=== PATIENT | male | born 1960 | race Hispanic/Latino ===

== ENCOUNTER 2017-05-14 11:44 | Inpatient (IN) | payer OTHER ==
--- NOTE | 2017-05-14 12:57 | RAD ---
EXAM DESCRIPTION: Abdomen Series CLINICAL HISTORY: ab pain 3 days COMPARISON: 13 May 2017 TECHNIQUE: PA chest with supine and upright views of the abdomen] FINDINGS: The lungs are clear. The heart is normal size. There is an unremarkable bowel gas pattern. There is no mass or calculus. Degenerative changes are observed in the lumbar spine. IMPRESSION: Unremarkable acute abdominal series. Electronically signed by: Jayjay Caba MD 05/14/2017 12:56 PM CDT
[2017-05-14] MEDS ORDERED: SODIUM CHLORIDE 0.9% 1000ML 1,000 ML IVS ONE ×2 (13:39→17:36)
--- NOTE | 2017-05-14 14:26 | CT ---
EXAM DESCRIPTION: Abdomen/Pelvis w/Contrast CLINICAL HISTORY: 56 years Male, epigatric/ruq pain with leukocytosis COMPARISON: None. TECHNIQUE: Transaxial images were obtained without oral contrast media and during injector demonstrated intravenous contrast media. Sagittal and coronal reconstruction was performed.This exam was performed according to our departmental dose-optimization program, which includes automated exposure control, adjustment of the mA and/or kV according to patient size and/or use of iterative reconstruction technique. FINDINGS: The lung bases are clear. The liver and spleen are unremarkable. Exam reveals a small amount of free fluid along the inferior margin of the liver. No adrenal masses are detected. Mild edema is observed about the gallbladder. No gallstones are seen. The pancreas is normal in appearance. Imaging of the kidneys reveals no evidence of hydronephrosis mass cyst or calcification. A small amount ascites is observed in the pelvis. No inguinal region abnormality is seen. The appendix is identified and is normal in appearance. Degenerative changes are observed in the lumbar spine. IMPRESSION: 1. A small amount of ascites is observed in the upper abdomen and in the pelvis. 2. Inflammatory changes are observed about the gallbladder without evidence of gallstones. Possible this may represent evidence of acalculous cholecystitis. Further evaluation the patient with a hepatobiliary scan should be considered. Sonography could also be entertained. Electronically signed by: Jayjay Caba MD 05/14/2017 2:25 PM CDT
[2017-05-14] MEDS ORDERED: PIPERACILLIN/TAZOBACTAM 3.375 GM in SODIUM CHLORIDE 0.9% 100ML 100 ML IVPB ONE (14:42)
[2017-05-14] MEDS ORDERED: PIPERACILLIN/TAZOBACTAM 3.375 GM VIAL IVPB ONE ×2 (14:48→22:13)
[2017-05-14] MEDS ORDERED: SODIUM CHLORIDE 0.9% 100ML 100 ML IVPB ONE ×2 (14:48→22:13)
--- NOTE | 2017-05-14 15:39 | US ---
EXAM DESCRIPTION: Abdomen,Limited CLINICAL HISTORY: 56 years,Male,eval gb, quest ct, elev wbc, ruq pain COMPARISON: None TECHNIQUE: Multiple real-time sonographic images were obtained of the right upper quadrant. FINDINGS: The liver demonstrates normal echotexture. No masses. No cysts. It measures 13.7 cm in craniocaudal length. Gallbladder demonstrates some possible sludge within the gallbladder. There is no intrahepatic biliary ductal dilatation. The gallbladder wall thickness is unremarkable. No pericholecystic fluid. The common bile duct measures 3 mm in diameter. Right kidney demonstrates normal cortical echotexture and thickness. No stones or hydronephrosis. It measures 9.5 cm in length. The pancreas visualized portions of the head and body appear unremarkable. No free fluid in the right upper quadrant. IMPRESSION: Gallbladder demonstrates a possible sludge within it. But the recent CT scan done today demonstrates evidence of cholecystitis. No shadowing stones seen.. Electronically signed by: Jayjay Arvizu MD 05/14/2017 3:38 PM CDT
--- NOTE | 2017-05-14 15:48 | ED.PDOC ---
History of Present Illness - General Chief Complaint: Abdominal Pain Stated Complaint: R abdominal discomfort Time Seen by Provider: 05/14/17 11:53 Source: patient, family Exam Limitations: language barrier - History of Present Illness Initial Comments: the patient is a 56-year-old male presenting to the emergency room secondary to epigastric and right upper quadrant abdominal pain for the last 3 days. He did have some nausea and vomiting yesterday. He has apparently recently resumed some drinking. He has been told he has gastritis. He has also apparently been told at some point that he has some cirrhosis. No previous abdominal surgeries. No fevers. No syncope or near syncope. The patient is Mauritian and his largely translates. Severity: moderate Improving Factors: nothing Worsening Factors: eating, movement Allergies/Adverse Reactions: Allergies NO KNOWN ALLERGY Allergy (Verified 05/14/17 12:02) Home Medications: Ambulatory Orders Liraglutide [Victoza] 18 mg SC DAILY 05/14/17 Metoprolol Tartrate 50 mg PO DAILY 05/14/17 Pantoprazole Tablet [Protonix] 40 mg PO DAILY 05/14/17 Review of Systems - Review of Systems Constitutional: States: malaise EENTM: States: no symptoms reported Respiratory: States: no symptoms reported Cardiology: States: no symptoms reported Gastrointestinal/Abdominal: States: see HPI, abdominal pain, nausea, vomiting Genitourinary: States: no symptoms reported Musculoskeletal: States: no symptoms reported Skin: States: no symptoms reported Neurological: States: see HPI Endocrine: States: no symptoms reported Hematologic/Lymphatic: States: no symptoms reported All other Systems: No Change from Baseline Past Medical History (General) - Patient Medical History Hx Stroke: No Hx Congestive Heart Failure: No Hx Hypertension: Yes Hx Diabetes: Yes Hx Gastroesophageal Reflux: Yes Surgical History: no surgical history - Vaccination History Hx Influenza Vaccination: Yes - 2016 Hx Pneumococcal Vaccination: No - Social History Hx Tobacco Use: No Hx Alcohol Use: Yes Family Medical History - Family History Father Family History: No Known Living Status: Physical Exam - Physical Exam General Appearance: Alert, No apparent distress Eye Exam: bilateral normal Ears, Nose, Throat: hearing grossly normal, normal ENT inspection, normal pharynx Neck: non-tender, full range of motion Respiratory: chest non-tender, lungs clear, normal breath sounds, no respiratory distress, no accessory muscle use Cardiovascular/Chest: normal peripheral pulses, regular rate, rhythm, no edema Peripheral Pulses: radial,right: 2+, radial,left: 2+, dorsalis pedis,right: 2+, dorsalis pedis,left: 2+ Gastrointestinal/Abdominal: other - there is some voluntary guarding. The patient has discomfort to palpation of his epigastric and right upper quadrant. Difficult to tell if there is rebound. No definite palpable mass. 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 There is some question of acalculous cholecystitis on this patient. He does have leukocytosis. The patient has been given a dose of Zosyn and blood cultures have been performed. The patient will be admitted for further monitoring and IV antibiotics. There is certainly a possibility of some overlying gastritis with this patient. Surgery is following along for now. - Results/Orders Results/Orders: Laboratory Tests 05/14/17 05/14/17 05/14/17 12:00 12:20 12:20 WBC 16.6 H RBC 5.16 Hgb 14.9 Hct 45.9 MCV 89.0 MCH 29.0 MCHC 32.5 L RDW 14.4 Plt Count 176 MPV 9.4 Absolute Neuts (auto) 15.00 H Absolute Lymphs (auto) 0.70 L Absolute Monos (auto) 0.80 Absolute Eos (auto) 0.00 Absolute Basos (auto) 0.10 Neutrophils % 90.4 H Lymphocytes % 4.3 L Monocytes % 4.9 Eosinophils % 0.0 L Basophils % 0.4 PT INR PTT (SP) Sodium 134 L Potassium 4.0 Chloride 95 L Carbon Dioxide 32 H Anion Gap 11.0 L BUN 10 Creatinine 0.79 BUN/Creatinine Ratio 12.7 Random Glucose 155 H Serum Osmolality 270.4 L Calcium 8.8 Magnesium 1.9 Total Bilirubin 1.5 H AST 18 ALT 13 Alkaline Phosphatase 92 Creatine Kinase 32 L CK-MB (CK-2) 0.8 CK-MB (CK-2) % Not Reportable Troponin I < 0.02 Serum Total Protein 7.9 Albumin 3.8 Globulin 4.1 H Albumin/Globulin Ratio 0.9 L Amylase 42 Lipase 29 Urine Color Yellow Urine Appearance Clear Urine pH 7.0 Ur Specific Karn[place] 1.015 Urine Protein Trace Urine Glucose (UA) 250 H Urine Ketones Negative Urine Blood Trace-intact H Urine Nitrite Negative Urine Bilirubin Negative Urine Urobilinogen 0.2 Ur Leukocyte Esterase Negative Urine RBC 0 Urine WBC 1-3 Ur Epithelial Cells 3-5 Urine Bacteria 0 05/14/17 12:20 WBC RBC Hgb Hct MCV MCH MCHC RDW Plt Count MPV Absolute Neuts (auto) Absolute Lymphs (auto) Absolute Monos (auto) Absolute Eos (auto) Absolute Basos (auto) Neutrophils % Lymphocytes % Monocytes % Eosinophils % Basophils % PT 12.3 INR 1.090 PTT (SP) 31.1 Sodium Potassium Chloride Carbon Dioxide Anion Gap BUN Creatinine BUN/Creatinine Ratio Random Glucose Serum Osmolality Calcium Magnesium Total Bilirubin AST ALT Alkaline Phosphatase Creatine Kinase CK-MB (CK-2) CK-MB (CK-2) % Troponin I Serum Total Protein Albumin Globulin Albumin/Globulin Ratio Amylase Lipase Urine Color Urine Appearance Urine pH Ur Specific [place] Urine Protein Urine Glucose (UA) Urine Ketones Urine Blood Urine Nitrite Urine Bilirubin Urine Urobilinogen Ur Leukocyte Esterase Urine RBC Urine WBC Ur Epithelial Cells Urine Bacteria CT scan of the abdomen and pelvis with IV contrast shows some small amount of free fluid as well as possibly some mild changes consistent with acalculous cholecystitis. Right upper quadrant ultrasound shows some mild gallbladder wall thickening and some thickened sludge. Acute abdominal series is nonspecific. Departure - Departure Clinical Impression: Abdominal pain Qualifiers: Abdominal location: right upper quadrant Qualified Code(s): R10.11 - Right upper quadrant pain Disposition: Admit Patient Home Medications: Ambulatory Orders Liraglutide [Victoza] 18 mg SC DAILY 05/14/17 Metoprolol Tartrate 50 mg PO DAILY 05/14/17 Pantoprazole Tablet [Protonix] 40 mg PO DAILY 05/14/17 Decision To Admit - Decistion To Admit Decision to Admit Reason: Medical Nature Decision to Admit Date: 05/14/17 Decision to Admit Time: 15:52
--- NOTE | 2017-05-14 16:49 | HP ---
SUPERVISING PHYSICIAN: Jose Sharp MD CHIEF COMPLAINT: Right upper quadrant abdominal pain. PRIMARY CARE PHYSICIAN: Didi [place], [place] HISTORY OF PRESENT ILLNESS: Mr. Basurto is a 56 year-old male, Kyrgyz-speaking only, who presented to the Emergency Room secondary to epigastric discomfort and some pain in his right upper quadrant that has been present for approximately 3 days. He noted that he has had some nausea and vomiting since yesterday. He does have a significant history of drinking and his says when he does drink, which is normally every day, he drinks about a case of beer a day. He had recently stopped drinking for a short period of time but started back recently. Within the last 3 days he has not drank secondary to his ongoing nausea and vomiting and abdominal pain. He has been told in the past by his family physician that he has had cirrhosis secondary to his drinking. Laboratory studies today showed he had a leukocytosis with a white count of 16.6 and a left shift. Chemistries showed a normal amylase and lipase. Liver functions showed a slightly elevated bilirubin at 1.5 with electrolytes showing a low sodium. Renal function is intact with a creatinine of 0.79. He had an abdominal x-ray as well as an abdominal pelvic CT with contrast and per radiology interpretation there is note of a small amount of ascites observed in the upper abdomen and in the pelvis and with some inflammatory changes about the gallbladder otherwise any evidence of gallstones. He was further examined with an ultrasound of the abdomen and per radiology interpretation noted that the gallbladder had some sludge present but no intrahepatic biliary duct dilation was noted. The common bile duct was measuring 3 mm in diameter. Given his symptomatology and findings on CT, there were concerns for acalculous cholecystitis, Dr. Sargent was consulted for the patient in the Emergency Room. The patient is now to be admitted to the medical/surgical floor for further treatment and evaluation of his right upper quadrant abdominal pain and elevated bilirubin. He was admitted in stable condition. PAST MEDICAL HISTORY: 1. Hypertension. 2. Diabetes mellitus., type 2, currently on Victoza. 3. Past history of gastritis. 4. History of chronic alcohol abuse. PAST SURGICAL HISTORY: None listed. CURRENT MEDICATIONS: 1. Victoza 1.2 mL subcutaneous daily. 2. Metoprolol 50 mg twice a day. 3. Protonix 40 mg daily. ALLERGIES: NO KNOWN DRUG ALLERGIES. FAMILY HISTORY: Noncontributory. 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 He is Kyrgyz-speaking only. His notes that he has never smoked or used illicit drugs but he does have a significant drinking habit for alcohol which normally consists of daily drinking, about a case of beer a day. REVIEW OF SYSTEMS: CONSTITUTIONAL: Positive for general malaise. HEENT: Denies any headaches, nasal congestion. RESPIRATORY: Denies any shortness of breath, coughing. HEART: Denies any chest pain, palpitations or syncopal episodes. GASTROINTESTINAL: As noted in the history of present illness, abdominal pain and nausea and vomiting. GENITOURINARY: Denies any dysuria, hematuria or other urinary symptoms. NEUROLOGICAL: Denies any syncopal episodes, vision changes or any other neurological issues. PHYSICAL EXAMINATION: VITAL SIGNS: On admission to the medical/surgical floor showed he had a temperature of 100.6 with a heart rate of 122, blood pressure 134/79, respirations 26, saturation 96% on room air. Admission weight 78.8 kg. GENERAL: The patient appears to be well-nourished and well-hydrated. On examination on the medical/surgical floor, the patient appears to be without any acute distress but is very stoic. Tympanic membranes are clear. Bilateral oropharynx is pink. Mucous membranes dry, no lesions noted. HEENT: Supple, non-tender, full range of motion. NECK: There is no jugular venous distention noted. CHEST: Lungs are clear to auscultation bilaterally without any rhonchi, wheezing or rales. CARDIOVASCULAR: Regular rate and rhythm without appreciable murmurs, rubs, or gallops. ABDOMEN: Mildly distended with notable tenderness in the right upper quadrant but no guarding. Bowel sounds are present but decreased. EXTREMITIES: No cyanosis, clubbing, or edema. NEUROLOGIC: He was alert and after visitation with his and himself, felt oriented x3. Cranial nerves II through XII were grossly intact. Facial features were symmetrical. Extraocular movements were within normal limits. There was no notable nystagmus. There was no notable neuro or sensory deficits noted. LABORATORY: CBC showed a leukocytosis, 61 segs, hemoglobin 14.9, hematocrit 45.9. Platelet count 176,000, differential did show a left shift with 90% neutrophils. Coagulation studies showed a normal PT/PTT. Chemistries showed a mild hyponatremia at 134 with carbon dioxide of 32, anion gap low at 11, BUN 10 , creatinine 0.79. Glucose 155. Lactic acid 1.8, calcium 8.8, magnesium 1.9, bilirubin elevated at 1.5. Other liver functions showed to be within normal limits. Troponin on admission was less than 0.02. Amylase and lipase were all within normal limits. Urinalysis showed 250 glucose with a trace of minor intact blood, otherwise was within normal limits. MICROBIOLOGY: Two sets of blood cultures are pending. RADIOLOGY: Abdominal x-ray in the Emergency Department prior to admission and per radiology interpretation was unremarkable, acute abdominal series. This was followed up with abdominal pelvic CT with contrast showed some ascites with some edema in the area around the gallbladder with a normal duct. This was followed up by ultrasound that revealed a thickened gallbladder wall with some pericystic fluid, no stones except some sludge was noted and it was negative for Velasquez;s sign. There was also note that he had significant cirrhosis on CT scan. ASSESSMENT: 1. Right upper quadrant abdominal pain with a leukocytosis and elevated bilirubin, suspect acalculous cholecystitis. 2. History of alcohol abuse with cirrhosis as noted on CT. 3. Hypertension. 4. Gastroesophageal reflux disease. 5. Type 2 diabetes mellitus on Victoza. 6. Febrile illness with a leukocytosis felt to be secondary to developing acalculous cholecystitis with the patient being initiated on antibiotic therapy. PLAN: We will admit the patient to the medical/surgical floor and obtain a consultation with Dr. Sargent that was management of the patient's ongoing symptoms. He will be started on IV antibiotics to include Levaquin and Flagyl. He did receive a dose of Zosyn in the Emergency Room. We will start him on IV fluids with a 2-liter bolus. This will be followed up with continuous fluid. He will be on n.p.o. status. We will await Dr. Sargent's recommendations and plan to repeat laboratory studies in the morning. Until discharge, we will continue to monitor the patient closely and treat appropriately #[id number] [facility]
--- NOTE | 2017-05-14 17:16 | CONS ---
DATE OF CONSULTATION: 05/14/17 REFERRING PHYSICIAN: Hospitalist Service HISTORY OF PRESENT ILLNESS: The patient is a 56 year-old male who presented to the Emergency Room. This is the third day of abdominal pain with associated nausea and vomiting yesterday. The patient speaks Armenian poorly and it is hard to distinguish exactly the onset, but apparently he did not feel good when he woke up Wednesday morning as he did not eat. There is no history of hepatitis, but his states that he has been told he has cirrhosis secondary to drinking. PAST MEDICAL HISTORY: 1. Injury to left shoulder leading to disability. The denies blood per rectum, melenic stools or blood in his vomitus. She does state that his liver function tests have been abnormal in the past leading to the diagnosis of cirrhosis. She is uncertain but does not believe he has ever had pancreatitis. ALLERGIES: NO KNOWN DRUG ALLERGIES. FAMILY HISTORY: Noncontributory. 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 The says he has never smoked or used illicit drugs, but has drunk large amounts of beer for some time. REVIEW OF SYSTEMS: Noncontributory except as in the History of Present Illness. The patient does complain of pain with deep breath. No history of fever or chills, weight gain or weight loss. No change in his bowel habits. PHYSICAL EXAMINATION: VITAL SIGNS: He is afebrile and normotensive. GENERAL: The patient is awake, alert and in moderate distress. HEENT: Reveals the sclera to be muddied. Mucous membranes are slightly dry. NECK: Without adenopathy. CHEST: He has equal breath sounds bilaterally anteriorly. HEART: Regular rate and rhythm. ABDOMEN: Mildly distended, tender in the right upper quadrant without mass or guarding. Bowel sounds are decreased. RECTAL: Examination is deferred. EXTREMITIES: Without clubbing, cyanosis or edema. LABORATORY: Creatinine 0.79, glucose 155, potassium 4. Liver functions are within normal limits other than total bilirubin 1.5. Amylase and lipase are within normal limits. CK, CK-MB and troponin are all within normal limits. Urine reveals large glucose, specific gravity 1.015. Microscopic is essentially clear. PT and INR revealed a PT of 12.3, INR of 1.09, PTT of 31. White blood cell count is 16.6 with 90% neutrophils, hemoglobin 14.9, platelet count 177. CT scan reveals ascites along with some edema in the area of the gallbladder with a normal duct. Ultrasound reveals thickened gallbladder wall with some pericholecystic fluid. No stones except possibly some sludge, but there was not a positive Velasquez's sign. It is significant that cirrhosis was not noted on the CT scan report. IMPRESSION: 1. Right upper quadrant abdominal pain and leukocytosis with bilirubin elevated to 1.5. 2. History of cirrhosis secondary to alcohol abuse. PLAN: Admission for IV antibiotics and IV hydration, NPO status. 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 #[id number] [facility]
[2017-05-14] MEDS ORDERED: ONDANSETRON INJ 4 MG/2 ML VIAL IV PRN (17:18)
[2017-05-14] MEDS ORDERED: SODIUM CHLORIDE 0.9% (FLUSH) 10 ML SYG IV PRN (17:18)
[2017-05-14] MEDS ORDERED: DEXTROSE 50% 25 GM/50 ML SYG IV PRN (17:18)
[2017-05-14] MEDS ORDERED: GLUCAGON INJ 1 MG VIAL SUBCU PRN (17:18)
[2017-05-14] MEDS ORDERED: MORPHINE SULFATE INJ 10 MG/ML VIAL IV PRN (17:18)
[2017-05-14] MEDS ORDERED: IV SET AND CAP CHANGE INJ INJ SCH (17:30)
[2017-05-14] MEDS ORDERED: KCL 20 MEQ/NS 1,000 ML IVS PRN (17:30)
[2017-05-14] MEDS ORDERED: PANTOPRAZOLE SODIUM IV 40 MG VIAL IV SCH (17:30)
[2017-05-14] MEDS ORDERED: metroNIDAZOLE IV PREMIX 500MG 500 MG in PREMIX BAG 1 BAG IVPB SCH (18:00)
[2017-05-14] MEDS ORDERED: levoFLOXacin 500MG IV 500 MG in PREMIX BAG 1 BAG IVPB SCH (18:00)
[2017-05-14] MEDS: INSULIN LISPRO 100 UNITS/ML PEN SUBCU SCH (18:25)
[2017-05-14] MEDS ORDERED: levoFLOXacin 500MG IV 100 ML IVPB ONE (19:10)
[2017-05-14] MEDS ORDERED: metroNIDAZOLE IV PREMIX 500MG 100 ML IVPB ONE (19:10)
[2017-05-14] MEDS: KCL 20 MEQ/NS 1,000 ML IVS PRN ×2 (19:20→21:50)
[2017-05-14] MEDS: levoFLOXacin 500MG IV 500 MG in PREMIX BAG 1 BAG IVPB SCH (19:36)
[2017-05-14] MEDS: metroNIDAZOLE IV PREMIX 500MG 500 MG in PREMIX BAG 1 BAG IVPB SCH (20:48)
[2017-05-14] MEDS ORDERED: PIPERACILLIN/TAZOBACTAM 3.375 GM in SODIUM CHLORIDE 0.9% 100ML 100 ML IVPB SCH (23:00)
[2017-05-15] MEDS: INSULIN LISPRO 100 UNITS/ML PEN SUBCU SCH ×4 (00:35→19:11)
[2017-05-15] MEDS ORDERED: metroNIDAZOLE IV PREMIX 500MG 100 ML IVPB ONE ×3 (04:09→19:20)
[2017-05-15] MEDS: metroNIDAZOLE IV PREMIX 500MG 500 MG in PREMIX BAG 1 BAG IVPB SCH ×3 (04:10→20:54)
[2017-05-15] MEDS ORDERED: METOPROLOL TARTRATE 25 MG TAB ONE (07:51)
[2017-05-15] MEDS: KCL 20 MEQ/NS 1,000 ML IVS PRN ×2 (08:05→17:29)
[2017-05-15] MEDS: METOPROLOL TARTRATE 50 MG TAB PO SCH (08:56)
[2017-05-15] MEDS ORDERED: IBUPROFEN 400 MG TAB ONE (09:27)
[2017-05-15] MEDS: IBUPROFEN 400 MG TAB PO PRN ×2 (09:30→21:00)
[2017-05-15] MEDS ORDERED: LEVALBUTEROL NEBS 1.25 MG/3 ML VIAL NEB PRN (09:54)
--- NOTE | 2017-05-15 10:11 | RAD ---
EXAM DESCRIPTION: Chest,2 Views CLINICAL HISTORY: fever COMPARISON: CT an acute abdominal series performed yesterday FINDINGS: The cardiomediastinal silhouette is unremarkable. There is persistent elevation of the right hemidiaphragm with subsegmental atelectasis or scarring in the right lung base. There is a questionable tiny right-sided pleural effusion. The left lung and left pleural space are unremarkable. No pneumothorax or acute fracture. Several superimposed EKG leads. IMPRESSION: Subsegmental atelectasis or scarring the right lung base with a possible tiny right-sided pleural effusion, new from yesterday. Electronically signed by: Leonardo Rodriguez MD 05/15/2017 10:09 AM CDT Workstation: [id number]
[2017-05-15] MEDS: LEVALBUTEROL NEBS 1.25 MG/3 ML VIAL NEB SCH ×3 (11:45→23:55)
[2017-05-15] MEDS ORDERED: levoFLOXacin 500MG IV 100 ML IVPB ONE (19:20)
[2017-05-15] MEDS: levoFLOXacin 500MG IV 500 MG in PREMIX BAG 1 BAG IVPB SCH (19:36)
[2017-05-16] MEDS: KCL 20 MEQ/NS 1,000 ML IVS PRN ×2 (02:47→11:29)
[2017-05-16] MEDS ORDERED: metroNIDAZOLE IV PREMIX 500MG 100 ML IVPB ONE ×3 (04:05→19:22)
[2017-05-16] MEDS: metroNIDAZOLE IV PREMIX 500MG 500 MG in PREMIX BAG 1 BAG IVPB SCH ×3 (04:33→20:32)
[2017-05-16] MEDS: INSULIN LISPRO 100 UNITS/ML PEN SUBCU SCH ×5 (07:14→23:39)
[2017-05-16] MEDS: METOPROLOL TARTRATE 50 MG TAB PO SCH ×2 (07:25→16:47)
--- NOTE | 2017-05-16 08:08 | PN ---
DATE: 05/15/17 SUPERVISING PHYSICIAN: Jose Sharp MD SUBJECTIVE: The patient continues to have a significant amount of abdominal pain, again it is his right upper quadrant, and now some discomfort down in the suprapubic area although he denies any discomfort during voiding. He has run a fever with a T-max temperature of 101.2. He has not had any nausea or vomiting or any diarrhea. He has also not shown any adverse effects from alcohol withdrawal at this point. OBJECTIVE: VITAL SIGNS: T-max 101.2, pulse 107, blood pressure 127/73, respirations 20, saturation 93% on room air. I&O: positive balance of 245 with 3300 in and 850 out. Weight was 79.1 kg. CHEST: Lung sounds were diminished to the posterior bases which is very faint and for wheezing on the right compared to the left. HEART: Regular rate and rhythm. ABDOMEN: Mildly distended with hypoactive bowel sounds and tenderness noted again in the right upper quadrant down into the right lower quadrant and suprapubic area. NEUROLOGICAL: He is alert and oriented x 3. LABORATORY: White count has shown some improvement, is down to 11.1. Hemoglobin 13.0, hematocrit 39.8, platelet count 122,000, differential continues to show a left shift. Chemistries today show normal electrolytes. Potassium 3.8, BUN13, creatinine down to 0.76. Glucoses have been 100 to 158, calcium 7.8. Bilirubin remains elevated at 1.5. Other liver functions showed to be within normal limits. Lipase within normal limits. MICROBIOLOGY: Blood cultures remain negative after 24 hours. RADIOLOGY: Chest x-ray today, 2-view, per radiology interpretation showed segmental atelectasis with scarring in the right lung base with a possible tiny right-sided pleural effusion, new from yesterday's examination. ASSESSMENT: 1. Right upper quadrant abdominal pain with continued leukocytosis and elevated bilirubin with suspicion for acalculous cholecystitis. 2. History of alcohol abuse with cirrhosis as noted on CT findings. 3. Hypertension. 4. Gastroesophageal reflux disease. 5. Type 2 diabetes mellitus on Victoza. 6. Febrile illness with leukocytosis felt to be secondary to developing acalculous cholecystitis with the patient having been initiated on antibiotic therapy with Levaquin and Flagyl. PLAN: Will continue with current plan of care right now with parenteral antibiotics to include continued Levaquin and azithromycin as his leukocytosis is showing some improvement. He will continue with IV fluids as current with normal saline with 20 of potassium running at 125 per hour with close monitoring of his I&O's. Will continue with pain management with morphine and Zofran as needed and he will remain n.p.o. We will continue to follow patient along with Dr. Sargent as per his recommendations. Until the, we will continue to monitor and treat appropriately until discharge. #[id number] [facility]
[2017-05-16] MEDS: LEVALBUTEROL NEBS 1.25 MG/3 ML VIAL NEB SCH ×3 (08:27→21:00)
[2017-05-16] MEDS ORDERED: MAGNESIUM HYDROXIDE 30 ML UD PO ONE (09:24)
[2017-05-16] MEDS ORDERED: METOPROLOL TARTRATE 50 MG TAB ONE (14:55)
[2017-05-16] MEDS ORDERED: DEXTROSE 50% 25 GM/50 ML SYG IV PRN (16:45)
[2017-05-16] MEDS ORDERED: GLUCAGON INJ 1 MG VIAL SUBCU PRN (16:45)
--- NOTE | 2017-05-16 16:50 | PCM.CORE ---
Physician DVT/VTE - Nurse DVT Assessment & Total Each Risk Factor Represents 3 Points: Medical PT with Hx of [place], CHF, Severe infection/sepsis Each Risk Factor Represents 1 Point: Age 41-60, Medical PT at Bed Rest Each Risk Factor is 1 Point: Obesity (BMI >25) DVT Assessment Score: 6 - 5 or more Very High Risk Treatments: Early Ambulation *, Sequential Compression Device Pharmacological: Enoxaparin 40mg SQ Daily
[2017-05-16] MEDS ORDERED: ENOXAPARIN SODIUM 40 MG/0.4 ML SYG SUBCU SCH (17:00)
--- NOTE | 2017-05-16 18:00 | PN ---
DATE: 05/16/17 SUPERVISING PHYSICIAN: Jose Sharp M.D. SUBJECTIVE: The patient actually is up ambulating today. Says his pain is still present but much better than previous days. He has had no nausea or vomiting or diarrhea. He remains with a T max of 101.1 last night. OBJECTIVE: VITAL SIGNS: T max 101.1, blood pressure 136/82, pulse 89, satting 100% on room air. Respirations 19. I's and O's show a positive balance of 1390 with 2390 in, 1,000 out. He has had 3 bowel movements today after Milk of Magnesia. Weight 79.1. CHEST: Lungs are clear to auscultation, just diminished towards the bases and more posteriorly. More noted on the right than the left. HEART: Regular rate and rhythm. ABDOMEN: Remains tender at the right upper quadrant. No guarding. Bowel sounds are present. EXTREMITIES: No clubbing, cyanosis or edema. NEUROLOGIC: He is alert and oriented times three. LABORATORY: White count has normalized to 9.9, hemoglobin stabilized at 12.4, hematocrit 37.3, platelet count is down to 109,000. Differential continues to show a left shift. Chemistries show normal electrolytes, potassium 4.2, BUN 13 , creatinine 0.74, glucoses have been 103 to 137. Bilirubin has gone down a little bit to 1.3, other liver functions showed to be within normal limits. Ammonia was 21. MICROBIOLOGY: Blood cultures remain negative at 48 hours. ASSESSMENT: 1. Right upper quadrant abdominal pain with leukocytosis on admission showing normalization now after initiation of antibiotic therapy and IV fluids with continued elevated bilirubin with ascites consistent with acalculous cholecystitis. 2. History of alcohol abuse with cirrhosis as noted on CT scan. 3. Hypertension, stable. 4. Gastroesophageal reflux disease. 5. Type 2 diabetes mellitus on Victoza, stable. 6. Continued febrile illness with leukocytosis having resolved contributing to the underlying acalculous cholecystitis with the patient being continued on antibiotic therapy to include Levaquin and Flagyl. 7. Moderate constipation possibly contributing to some of his abdominal pain. PLAN: Will continue with antibiotic therapy today. Will continue to follow the patient along with Dr. Sargent. The patient will get a dose of Milk of Magnesia today in efforts to relieve his constipation. He will be started on a clear liquid diet and as soon as he is tolerating that will plan to decrease his fluid intake on the IV to 60 mL per hour with continued normal saline and potassium replacement. 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 Until discharge, will continue to follow the patient along with Dr. Sargent, monitor closely and treat appropriately. #[id number] [facility]
[2017-05-16] MEDS ORDERED: levoFLOXacin 500MG IV 100 ML IVPB ONE (19:22)
[2017-05-16] MEDS: levoFLOXacin 500MG IV 500 MG in PREMIX BAG 1 BAG IVPB SCH (19:28)
[2017-05-16] MEDS: IBUPROFEN 400 MG TAB PO PRN (23:08)
[2017-05-17] MEDS ORDERED: metroNIDAZOLE IV PREMIX 500MG 100 ML IVPB ONE (05:09)
[2017-05-17] MEDS: metroNIDAZOLE IV PREMIX 500MG 500 MG in PREMIX BAG 1 BAG IVPB SCH (05:19)
--- NOTE | 2017-05-17 07:12 | RAD ---
EXAM DESCRIPTION: Abdomen Flat Upright CLINICAL HISTORY: 56 years Male, constipation COMPARISON: None. FINDINGS: There is elevation of the right hemidiaphragm which is not visualized on this exam. No free subdiaphragmatic gas is identified. There is a small amount of stool and gas scattered throughout the colon. No dilated small bowel loops are seen. No suspicious intra-abdominal calcification or mass. IMPRESSION: Elevation the right hemidiaphragm without evidence of constipation, obstruction or other acute intra-abdominal abnormality. Electronically signed by: Leonardo Rodriguez MD 05/17/2017 7:11 AM CDT [facility]station: [email or web address]
[2017-05-17] MEDS: INSULIN LISPRO 100 UNITS/ML PEN SUBCU SCH ×2 (07:17→12:37)
[2017-05-17] MEDS: METOPROLOL TARTRATE 50 MG TAB PO SCH (09:17)
[2017-05-17] MEDS: LEVALBUTEROL NEBS 1.25 MG/3 ML VIAL NEB SCH ×2 (10:00→14:35)
[2017-05-17] MEDS ORDERED: BIFIDOBACTERIUM INFANTIS 4 MG CAP PO SCH (10:00)
--- NOTE | 2017-05-17 11:47 | DS ---
DISCHARGE DIAGNOSIS: 1. Acute abdominal pain, right upper quadrant, with associated leukocytosis, possibly related to acalculous cholecystitis versus fecal impaction. 2. History of alcohol abuse in the past with cirrhosis noted on CT scan, possibly contributing abdominal pain with liver capsular discomfort. 3. History of hypertension, stable. 4. History of gastroesophageal reflux disease. 5. History of type 2 diabetes mellitus on Victoza, stable. 6. Leukocytosis, showing some improvement with the patient being treated with Levaquin and Flagyl with Levaquin continued as an outpatient. 7. Moderate constipation with fecal impaction, probably contributing to abdominal pain, showing some improvement after treatment initiated. 8. Recent colonoscopy with biopsies to be reviewed by Dr. Grossman, GI specialist in [place]. HISTORY OF PRESENT ILLNESS: This 56-year-old, male is admitted to the hospital via the Emergency Room because of significant abdominal discomfort, especially in the right upper quadrant present and worsening for at least two to three days. He has had some nausea and vomiting. He has significant history of alcoholic consumption in the past, drinking up to a case of beer a day. He has recently stopped drinking, but has started again. The possibility of a gastritis is to be considered. He had elevated white count and concern for intraabdominal pathology resulting in abdominal CT scan which noted some ascites as well as inflammatory changes around the gallbladder with no evidence of gallstones. There was some sludge in the gallbladder, but no ductal dilation. Dr. Sargent saw the patient in consultation and assisted in followup during his course of therapy. He eventually was given a course of Milk of Magnesia and suppositories and had some quite good bowel movement results and subsequently felt better and in fact was hungry at the time of discharge tolerating more solid food. LABORATORY: White count initially was 16,600 with 90% neutrophils, decreasing to 9,300 with 88% neutrophils, hemoglobin 11.9. INR normal at 1.09. Chemistries showed potassium from 4.2 down to 3.5, glucose 125 at discharge. Calcium 8.2, bilirubin was 1.3, down to 1.1, while liver enzymes remained normal. Albumin 2.5. Amylase and lipase within normal limits with lipase low at 20. RADIOLOGY: CT scan of the abdomen and pelvis revealed a small amount of ascites. Some inflammatory changes were observed around the gallbladder with no stone, possibility of an acalculous cholecystitis was mentioned. Abdominal ultrasound followed which showed possibly sludge within the gallbladder. No intraductal dilatation was evidenced. Chest x-ray was performed and showed some scarring in the lung base. Initial studies showed some evidence on the abdominal films of some fecal stasis which showed improvement at the time of repeat abdominal x-ray. HOSPITAL COURSE: The patient was feeling much improved at the time of discharge and was ready for outpatient followup. PLAN: The patient was discharged home tolerating a mechanical soft diet. He is to have followup with Dr. Grossman, GI clinic in [place] on 05/31/17 at 3: 15 PM. His home medications will be continued along with MiraLAX 17 grams daily in an effort to try to prevent constipation. Try some Milk of Magnesia weekly if need be if his constipation is becoming a problem. He is to slowly advance his diet. He is to take results of his hospital studies and x-rays with him to the clinic visit for Dr. Grossman's review. Avoid alcohol intake. Take extra vitamins. Return if not improving. #[id number] [facility]
[2017-05-17 14:54] VITALS: BP 149/77; TEMP 98.1; O2SAT 93
[2017-05-17] MEDS ORDERED: ENOXAPARIN SODIUM 40 MG/0.4 ML SYG SUBCU SCH (21:00)
[2017-05-18] MEDS ORDERED: levoFLOXacin 500 MG TAB PO SCH (08:00)
== END 2017-05-17 15:40 | disposition home or self-care (01) | DRG 446 ==
LOC: ER 11:44 → MS 16:49 → OBSVTOIN 16:49
PROVIDERS: ADMIT Nurse Practitioner Family; ATTEND Emergency Medicine
PROC: BW21YZZ Computerized Tomography (CT Scan) of Abdomen and Pelvis using Other Contrast (ICD-10-PCS; principal; 2017-05-14)
DX: K81.9 Cholecystitis, unspecified (principal); K56.41 Fecal impaction; I10 Essential (primary) hypertension; K21.9 Gastro-esophageal reflux disease without esophagitis; E11.9 Type 2 diabetes mellitus without complications; K70.31 Alcoholic cirrhosis of liver with ascites; F10.10 Alcohol abuse, uncomplicated; Z79.84 Long term (current) use of oral hypoglycemic drugs; Z79.899 Other long term (current) drug therapy